=== PATIENT | male | born 1950 | race African-American/Black ===

== ENCOUNTER 2017-03-02 17:53 | Inpatient (IN) | payer BC ==
[~2017-03-02] VITALS: Ht 167.6 cm; Wt 70.3 kg
[2017-03-02 20:30] VITALS: BP 144/72
[2017-03-02] MEDS ORDERED: ACETAMINOPHEN 325 MG TABLET. PO PRN (21:00)
[2017-03-02] MEDS ORDERED: oxyCODONE/APAP 5/325 1 TAB TABLET PO PRN (21:00)
[2017-03-02] MEDS ORDERED: DEXTROSE 50% 25 GM / 50ML DISP.SYRIN. IV PRN (21:00)
[2017-03-02] MEDS ORDERED: ONDANSETRON PF 4 MG/2 ML VIAL. IV PRN (21:00)
[2017-03-02] MEDS ORDERED: SORA200T PO ×2 (21:07)
[2017-03-02] MEDS ORDERED: OLME1TAB PO (21:07)
[2017-03-02] MEDS ORDERED: GLYB5TAB3 PO (21:07)
[2017-03-02] MEDS ORDERED: ASCO500T3 PO (21:07)
[2017-03-02] MEDS ORDERED: MULT-208 PO (21:07)
[2017-03-02] MEDS: IV NORMAL SALINE 1000ML BAG 1,000 ML IV SCH (21:49)
[2017-03-02] MEDS ORDERED: RANI150C PO (22:04)
[2017-03-02] MEDS ORDERED: ONDA-35 PO (22:04)
[2017-03-02] MEDS ORDERED: HYDR-2666 PO (22:04)
[2017-03-02 23:08] VITALS: BP 146/74
[2017-03-02] MEDS ORDERED: PNEUMOCOCCAL VAX SCREEN BY RX. MC ONE (23:30)
[2017-03-03 03:07] VITALS: BP 125/75
[2017-03-03 04:10] LABS: BASO # 0.1 x10^3/uL (0.0-0.2); BASO % 1 % (0-3); EOS % 2 % (0-3); HEMATOCRIT 42.4 % (39.0-53.0); HEMOGLOBIN 13.9 g/dL (13.0-17.5); LYMPH # 3.4 x10^3/uL (1.0-4.8); LYMPH % 38 % (24-48); MEAN CORPUSCULAR HEMOGLOBIN 31 pg (25-35); MEAN CORPUSCULAR HGB CONC 33 g/dL (31-37); MEAN CORPUSCULAR VOLUME 93 fL (79-100); MONO % 13 % (0-9); NEUT % 47 % (31-73); PLATELET COUNT 195 x10^3/uL (140-400); RED BLOOD COUNT 4.56 x10^6/uL (4.30-5.70); RED CELL DISTRIBUTION WIDTH 13.9 % (11.5-14.5)
[2017-03-03 04:20] LABS: INR 1.1 (0.8-1.1); PROTHROMBIN TIME PATIENT 13.1 SEC (11.7-14.0)
[2017-03-03 04:24] LABS: ALBUMIN 2.8 g/dL (3.4-5.0); ALBUMIN/GLOBULIN RATIO 0.5 (1.0-1.7); CREATININE 0.7 mg/dL (0.7-1.3); DIRECT BILIRUBIN 0.4 mg/dL (0.0-0.2); GFR 137.4; POTASSIUM 4.2 mmol/L (3.5-5.1); TOTAL BILIRUBIN 0.8 mg/dL (0.2-1.0)
[2017-03-03] MEDS ORDERED: SORAFENIB TOSYLATE 400 MG PO SCH ×2 (06:00→16:00)
[2017-03-03 07:00] VITALS: BP 133/73
[2017-03-03] MEDS ORDERED: glyBURIDE 5 MG TABLET PO SCH (08:00)
[2017-03-03] MEDS: FAMOTIDINE 20 MG TABLET. PO SCH ×2 (08:01→21:00)
[2017-03-03] MEDS: INSULIN ASPART 300 UNITS/3 ML INSULN.PEN SQ SCH ×6 (08:14→17:55)
--- NOTE | 2017-03-03 08:26 | PDOC1 ---
History and Physical Date of Admission Date of Admission DATE: 03/03/17 TIME: 08:20 History of Present Illness History of Present Illness pt transferred from [place] for leg weakness and back pain. He hurt his back 8 days ago, lifting a 40lb paint can while working. He fell to his knee then, and had acute back pain, had been seen by PCP, lortab had helped, but pain persisted, now with leg weakness and diminished sensation to BLE, MRI done there showed mult problems, DJD and disk injury. Pt follow at [facility] for liver cancer, 2 spots on liver, 1 spot on lung, taking monoclonal antibody tx. He has f/u planned next monday w/ IR for Venous mapping of his liver, pain OK now, no leg str. and cannot walk Past Medical History Heme/Onc: Cancer Endocrine: Diabetes Family History Family History: No Significant Social History Smoke: No ALCOHOL: none Current Medications Current Medications Current Medications Oxycodone/ Acetaminophen (Percocet 5/325) 1 tab PRN Q4HRS PRN PO PAIN; Start at 21:00 Acetaminophen (Tylenol) 650 mg PRN Q6HRS PRN PO MILD PAIN / TEMP; Start at 21:00 Ondansetron HCl (Zofran) 4 mg PRN Q6HRS PRN IV NAUSEA/VOMITING; Start 03/02/17 at 21:00 Polyethylene Glycol (miraLAX PACKET) 17 gm DAILY PO ; Start 03/03/17 at 09:00 Sodium Chloride 1,000 ml @ 75 mls/hr [id number] IV Last administered on 03/02/17t 21:49; Start 03/02/17 at 21:00 Insulin Aspart (Novolog) 0-7 UNITS TIDWMEALS SQ ; Start 03/03/17 at 08:00 Dextrose (Dextrose 50%-Water Syringe) 12.5 gm PRN Q15MIN PRN IV SEE COMMENTS; Start 03/02/17 at 21:00 Ascorbic Acid (Vitamin C) 500 mg DAILY PO ; Start 03/03/17 at 09:00 Glyburide (Diabeta) 5 mg DAILYWBKFT PO ; Start 03/03/17 at 08:00 Multivitamins (Thera M Plus) 1 tab DAILY PO ; Start 03/03/17 at 09:00 Losartan Potassium (Cozaar) 100 mg DAILY PO ; Start 03/03/17 at 09:00 Non-Formulary Medication 400 mg DAILY06 PO Last administered on 03/03/17 05:35 ; Start 03/03/17 at 06:00 Non-Formulary Medication 400 mg DAILY16 PO Last administered on 03/03/17 05:37 ; Start 03/03/17 at 16:00 Hydrochlorothiazide (Microzide) 12.5 mg DAILY PO ; Start 03/03/17 at 09:00 Famotidine (Pepcid) 10 mg BID PO ; Start 03/03/17 at 09:00 Pneumococcal Polyvalent Vaccine (Do NOT chart on this placeholder) 1 each 1X ONCE MC ; Start 03/02/17 at 23:30; Stop 03/02/17 at 23:31; Status UNV Pneumococcal Polyvalent Vaccine (Pneumovax 23) 0.5 ml ONCE ONCE VAX IM ; Start 03/03/17 at 09:00; Stop 03/03/17 at 09:01 Active Scripts Active Reported Ranitidine Hcl 150 Mg Capsule 0.5 Tab PO BID Hydrocodone-Apap 5-325 (Hydrocodone Bit/Acetaminophen) 1 Each Tablet 1-2 Tab PO PRN Q6-8HRS PRN Ondansetron Hcl 4 Mg Tablet 8 Mg PO PRN Q8HRS PRN Nexavar (Sorafenib Tosylate) 200 Mg Tablet 400 Mg PO DAILY16 Nexavar (Sorafenib Tosylate) 200 Mg Tablet 400 Mg PO DAILY06 Benicar Hct 20-12.5 Mg Tablet (Olmesartan/Hydrochlorothiazide) 1 Each Tablet 1 Tab PO DAILY Multi-Day Vitamins (Multivitamin) 1 Each Tablet 1 Tab PO DAILY Glyburide 5 Mg Tablet 5 Mg PO DAILY Ascorbic Acid 500 Mg Tablet 500 Mg PO DAILY Allergies Allergies: Coded Allergies: No Known Drug Allergies (Unverified , 03/02/17) ROS General: No: Chills, Night Sweats, Malaise, Appetite, Other PSYCHOLOGICAL ROS: No: Anxiety, Behavioral Disorder, Concentration difficultie , Decreased libido, Depression, Disorientation, Hallucinations, Hostility, Irritablity, Memory difficulties, Mood Swings, Obsessive thoughts, Physical abuse, Sexual abuse, Sleep disturbances, Suicidal ideation, Other Eyes: No Blurry vision, No Decreased vision, No Double vision, No Dry eyes, No Excessive tearing, No Eye Pain, No Itchy Eyes, No Loss of vision, No Photophobia , No Scotomata, No Uses contacts, No Uses glasses, No Other HEENT: No: Heacaches, Visual Changes, Hearing change, Nasal congestion, Nasal discharge, Oral lesions, Sinus pain, Sore Throat, Epistaxis, Sneezing, Snoring, Tinnitus, Vertigo, Vocal changes, Other Respiratory: No: Cough, Hemoptysis, Orthopnea, Pleuritic Pain, Shortness of breath, SOB with excertion, Sputum Changes, Stridor, Tachypnea, Wheezing, Other Cardiovascular: No Chest Pain, No Palpitations, No Orthopnea, No Paroxysmal Noc. Dyspnea, No Edema, No Lt Headedness, No Other Gastrointestinal: No Nausea, No Vomiting, No Abdominal Pain, No Diarrhea, No Constipation, No Melena, No Hematochezia, No Other Genitourinary: No Dysuria, No Frequency, No Incontinence, No Hematuria, No Retention, No Discharge, No Urgency, No Pain, No Flank Pain, No Other, No , No , No , No , No , No , No Musculoskeletal: Yes Gait Disturbance, Yes Joint Pain, Yes Joint Stiffness, No Joint Swelling, No Muscle Pain, No Muscular Weakness, No Pain In:, No Swelling In:, No Other Neurological: Yes Gait Disturbance, Yes Impaired Coord/balance, Yes Numbness/ Tingling, No Behavorial Changes, No Bowel/Bladder ControlChng, No Confusion, No Dizziness, No Headaches, No Memory Loss, No Seizures, No Speech Problems, No Tremors, No Visual Changes, No Weakness, No Other Skin: No Dry Skin, No Eczema, No Hair Changes, No Lumps, No Mole Changes, No Mottling, No Nail Changes, No Pruritus, No Rash, No Skin Lesion Changes, No Other, No Acne Physical Exam General: Alert, Oriented X3, Cooperative, No acute distress HEENT: Atraumatic, PERRLA, EOMI Lungs: Clear to auscultation, Normal air movement Heart: no gallops, no murmurs Abdomen: Normal bowel sounds, Soft Rectal Exam: not examined Extremities: No cyanosis, No edema, Normal pulses Neuro: Normal speech, Other (leg weakness, poor senstation) Psych/Mental Status: Mental status NL, Mood NL Vitals Vitals Vital Signs Date Time Temp Pulse Resp B/P (MAP) Pulse Ox O2 Delivery O2 Flow Rate FiO2 03/03/17 07:00 98.0 67 18 133/73 (93) 97 Room Air 98.0 Labs Labs Laboratory Tests Test 03/03/17 02:53 03/03/17 02:55 03/03/17 07:21 White Blood Count 9.0 x10^3/uL (4.0-11.0) Red Blood Count 4.56 x10^6/uL (4.30-5.70) Hemoglobin 13.9 g/dL (13.0-17.5) Hematocrit 42.4 % (39.0-53.0) Mean Corpuscular Volume 93 fL (79-100) Mean Corpuscular Hemoglobin 31 pg (25-35) Mean Corpuscular Hemoglobin Concent 33 g/dL (31-37) Red Cell Distribution Width 13.9 % (11.5-14.5) Platelet Count 195 x10^3/uL (140-400) Neutrophils (%) (Auto) 47 % (31-73) Lymphocytes (%) (Auto) 38 % (24-48) Monocytes (%) (Auto) 13 % (0-9) Eosinophils (%) (Auto) 2 % (0-3) Basophils (%) (Auto) 1 % (0-3) Neutrophils # (Auto) 4.2 x10^3uL (1.8-7.7) Lymphocytes # (Auto) 3.4 x10^3/uL (1.0-4.8) Monocytes # (Auto) 1.1 x10^3/uL (0.0-1.1) Eosinophils # (Auto) 0.2 x10^3/uL (0.0-0.7) Basophils # (Auto) 0.1 x10^3/uL (0.0-0.2) Prothrombin Time 13.1 SEC (11.7-14.0) Prothromb Time International Ratio 1.1 (0.8-1.1) Sodium Level 135 mmol/L (136-145) Potassium Level 4.2 mmol/L (3.5-5.1) Chloride Level 99 mmol/L (98-107) Carbon Dioxide Level 28 mmol/L (21-32) Anion Gap 8 (6-14) Blood Urea Nitrogen 12 mg/dL (8-26) Creatinine 0.7 mg/dL (0.7-1.3) Estimated GFR (Cockcroft-Gault) 137.4 BUN/Creatinine Ratio 17 (6-20) Glucose Level 195 mg/dL (70-99) Calcium Level 9.0 mg/dL (8.5-10.1) Total Bilirubin 0.8 mg/dL (0.2-1.0) Direct Bilirubin 0.4 mg/dL (0.0-0.2) Aspartate Amino Transf (AST/SGOT) 174 U/L (15-37) Alanine Aminotransferase (ALT/SGPT) 174 U/L (16-63) Alkaline Phosphatase 128 U/L (46-116) Total Protein 8.0 g/dL (6.4-8.2) Albumin 2.8 g/dL (3.4-5.0) Albumin/Globulin Ratio 0.5 (1.0-1.7) Glucose (Fingerstick) 230 mg/dL (70-99) Laboratory Tests Test 03/03/17 02:53 03/03/17 02:55 03/03/17 07:21 White Blood Count 9.0 x10^3/uL (4.0-11.0) Red Blood Count 4.56 x10^6/uL (4.30-5.70) Hemoglobin 13.9 g/dL (13.0-17.5) Hematocrit 42.4 % (39.0-53.0) Mean Corpuscular Volume 93 fL (79-100) Mean Corpuscular Hemoglobin 31 pg (25-35) Mean Corpuscular Hemoglobin Concent 33 g/dL (31-37) Red Cell Distribution Width 13.9 % (11.5-14.5) Platelet Count 195 x10^3/uL (140-400) Neutrophils (%) (Auto) 47 % (31-73) Lymphocytes (%) (Auto) 38 % (24-48) Monocytes (%) (Auto) 13 % (0-9) Eosinophils (%) (Auto) 2 % (0-3) Basophils (%) (Auto) 1 % (0-3) Neutrophils # (Auto) 4.2 x10^3uL (1.8-7.7) Lymphocytes # (Auto) 3.4 x10^3/uL (1.0-4.8) Monocytes # (Auto) 1.1 x10^3/uL (0.0-1.1) Eosinophils # (Auto) 0.2 x10^3/uL (0.0-0.7) Basophils # (Auto) 0.1 x10^3/uL (0.0-0.2) Prothrombin Time 13.1 SEC (11.7-14.0) Prothromb Time International Ratio 1.1 (0.8-1.1) Sodium Level 135 mmol/L (136-145) Potassium Level 4.2 mmol/L (3.5-5.1) Chloride Level 99 mmol/L (98-107) Carbon Dioxide Level 28 mmol/L (21-32) Anion Gap 8 (6-14) Blood Urea Nitrogen 12 mg/dL (8-26) Creatinine 0.7 mg/dL (0.7-1.3) Estimated GFR (Cockcroft-Gault) 137.4 BUN/Creatinine Ratio 17 (6-20) Glucose Level 195 mg/dL (70-99) Calcium Level 9.0 mg/dL (8.5-10.1) Total Bilirubin 0.8 mg/dL (0.2-1.0) Direct Bilirubin 0.4 mg/dL (0.0-0.2) Aspartate Amino Transf (AST/SGOT) 174 U/L (15-37) Alanine Aminotransferase (ALT/SGPT) 174 U/L (16-63) Alkaline Phosphatase 128 U/L (46-116) Total Protein 8.0 g/dL (6.4-8.2) Albumin 2.8 g/dL (3.4-5.0) Albumin/Globulin Ratio 0.5 (1.0-1.7) Glucose (Fingerstick) 230 mg/dL (70-99) VTE Prophylaxis Ordered VTE Prophylaxis Devices: Yes VTE Pharmacological Prophylaxi: Contraindicated Assessment/Plan Assessment/Plan Acute lumbar disk injury with radiculopathy leg weakness, cannot ambulate, Liver cancer, maybe HCC, w/ mets to lung bone scan to eval other possible sites Neurosurg consulted for spinal injury Dm2 transaminitis moderate malnutrition admit JIMENEZ DE LA CRUZ MD March 03, 2017 08:26
[2017-03-03] MEDS ORDERED: DEXTROSE 50% 25 GM / 50ML DISP.SYRIN. IV PRN (08:30)
[2017-03-03] MEDS ORDERED: ASCORBIC ACID 500 MG TABLET PO SCH (09:00)
[2017-03-03] MEDS ORDERED: LOSARTAN POTASSIUM 50 MG TABLET. PO SCH (09:00)
[2017-03-03] MEDS ORDERED: PNEUMOC CONJ VACC 23-VALENT 0.5 ML VIAL. VAX IM ONE (09:00)
[2017-03-03] MEDS ORDERED: POLYETHYLENE GLYCOL 3350 17 GM PACKET. PO SCH (09:00)
[2017-03-03] MEDS ORDERED: MULTIVITAMIN with MINERAL TABLET. PO SCH (09:00)
[2017-03-03] MEDS ORDERED: hydroCHLOROthiazide 12.5 MG CAPSULE PO SCH (09:00)
[2017-03-03] MEDS: IV NORMAL SALINE 1000ML BAG 1,000 ML IV SCH (10:20)
[2017-03-03 11:00] VITALS: BP 174/75
--- NOTE | 2017-03-03 12:18 | RAD ---
Radionuclide bone scan, 03/03/2017: History: Back pain, lifting injury, previous lung cancer Whole body imaging was performed following IV injection of 25 mCi of technetium 99m MDP. No previous bone scan is available at this time for correlative purposes. The following findings are delineated: 1. There are foci of increased activity at 2 levels in the lower thoracic spine, most prominent focus is at approximately T10. This finding may be on a traumatic, arthritic or metastatic basis. Correlation with radiographic and/or MR findings is suggested in this patient with back pain. 2. There are foci of increased activity both on the right and the left at approximately the L5-S1 level. This pattern suggests facet joint arthropathy. Metastatic foci cannot be excluded. 3. Foci of mildly increased activity at the right shoulder, right wrist, the right sternoclavicular joint and the left first MTP joint region are likely arthritic in nature. 4. Increased activity at the sacroiliac joints, right greater than left is also probably arthritic in nature. 5. Normal urinary tract activity is evident.
--- NOTE | 2017-03-03 13:23 | PDOC ---
PROGRESS NOTES Subjective Subjective Patient seen and examined. Progressive Bilateral LE weakness, not explained by lumbar MRI. Thoracic MRI scan ordered. Full consult to follow. Objective Objective Vital Signs Date Time Temp Pulse Resp B/P (MAP) Pulse Ox O2 Delivery O2 Flow Rate FiO2 03/03/17 11:00 97.9 67 18 174/75 (108) 97 Room Air 97.9 Intake and Output 03/03/17 07:00 Intake Total 588 ml Output Total 800 ml Balance -212 ml Intake IV Total 588 ml Output Urine Total 800 ml Comment Review of Relevant I have reviewed the following items blas (where applicable) has been applied. Labs Laboratory Tests Test 03/03/17 02:53 03/03/17 02:55 03/03/17 07:21 03/03/17 12:12 White Blood Count 9.0 x10^3/uL (4.0-11.0) Red Blood Count 4.56 x10^6/uL (4.30-5.70) Hemoglobin 13.9 g/dL (13.0-17.5) Hematocrit 42.4 % (39.0-53.0) Mean Corpuscular Volume 93 fL (79-100) Mean Corpuscular Hemoglobin 31 pg (25-35) Mean Corpuscular Hemoglobin Concent 33 g/dL (31-37) Red Cell Distribution Width 13.9 % (11.5-14.5) Platelet Count 195 x10^3/uL (140-400) Neutrophils (%) (Auto) 47 % (31-73) Lymphocytes (%) (Auto) 38 % (24-48) Monocytes (%) (Auto) 13 % (0-9) Eosinophils (%) (Auto) 2 % (0-3) Basophils (%) (Auto) 1 % (0-3) Neutrophils # (Auto) 4.2 x10^3uL (1.8-7.7) Lymphocytes # (Auto) 3.4 x10^3/uL (1.0-4.8) Monocytes # (Auto) 1.1 x10^3/uL (0.0-1.1) Eosinophils # (Auto) 0.2 x10^3/uL (0.0-0.7) Basophils # (Auto) 0.1 x10^3/uL (0.0-0.2) Prothrombin Time 13.1 SEC (11.7-14.0) Prothromb Time International Ratio 1.1 (0.8-1.1) Sodium Level 135 mmol/L (136-145) Potassium Level 4.2 mmol/L (3.5-5.1) Chloride Level 99 mmol/L (98-107) Carbon Dioxide Level 28 mmol/L (21-32) Anion Gap 8 (6-14) Blood Urea Nitrogen 12 mg/dL (8-26) Creatinine 0.7 mg/dL (0.7-1.3) Estimated GFR (Cockcroft-Gault) 137.4 BUN/Creatinine Ratio 17 (6-20) Glucose Level 195 mg/dL (70-99) Calcium Level 9.0 mg/dL (8.5-10.1) Total Bilirubin 0.8 mg/dL (0.2-1.0) Direct Bilirubin 0.4 mg/dL (0.0-0.2) Aspartate Amino Transf (AST/SGOT) 174 U/L (15-37) Alanine Aminotransferase (ALT/SGPT) 174 U/L (16-63) Alkaline Phosphatase 128 U/L (46-116) Total Protein 8.0 g/dL (6.4-8.2) Albumin 2.8 g/dL (3.4-5.0) Albumin/Globulin Ratio 0.5 (1.0-1.7) Glucose (Fingerstick) 230 mg/dL (70-99) 288 mg/dL (70-99) Laboratory Tests Test 03/03/17 02:53 03/03/17 02:55 03/03/17 07:21 03/03/17 12:12 White Blood Count 9.0 x10^3/uL (4.0-11.0) Red Blood Count 4.56 x10^6/uL (4.30-5.70) Hemoglobin 13.9 g/dL (13.0-17.5) Hematocrit 42.4 % (39.0-53.0) Mean Corpuscular Volume 93 fL (79-100) Mean Corpuscular Hemoglobin 31 pg (25-35) Mean Corpuscular Hemoglobin Concent 33 g/dL (31-37) Red Cell Distribution Width 13.9 % (11.5-14.5) Platelet Count 195 x10^3/uL (140-400) Neutrophils (%) (Auto) 47 % (31-73) Lymphocytes (%) (Auto) 38 % (24-48) Monocytes (%) (Auto) 13 % (0-9) Eosinophils (%) (Auto) 2 % (0-3) Basophils (%) (Auto) 1 % (0-3) Neutrophils # (Auto) 4.2 x10^3uL (1.8-7.7) Lymphocytes # (Auto) 3.4 x10^3/uL (1.0-4.8) Monocytes # (Auto) 1.1 x10^3/uL (0.0-1.1) Eosinophils # (Auto) 0.2 x10^3/uL (0.0-0.7) Basophils # (Auto) 0.1 x10^3/uL (0.0-0.2) Prothrombin Time 13.1 SEC (11.7-14.0) Prothromb Time International Ratio 1.1 (0.8-1.1) Sodium Level 135 mmol/L (136-145) Potassium Level 4.2 mmol/L (3.5-5.1) Chloride Level 99 mmol/L (98-107) Carbon Dioxide Level 28 mmol/L (21-32) Anion Gap 8 (6-14) Blood Urea Nitrogen 12 mg/dL (8-26) Creatinine 0.7 mg/dL (0.7-1.3) Estimated GFR (Cockcroft-Gault) 137.4 BUN/Creatinine Ratio 17 (6-20) Glucose Level 195 mg/dL (70-99) Calcium Level 9.0 mg/dL (8.5-10.1) Total Bilirubin 0.8 mg/dL (0.2-1.0) Direct Bilirubin 0.4 mg/dL (0.0-0.2) Aspartate Amino Transf (AST/SGOT) 174 U/L (15-37) Alanine Aminotransferase (ALT/SGPT) 174 U/L (16-63) Alkaline Phosphatase 128 U/L (46-116) Total Protein 8.0 g/dL (6.4-8.2) Albumin 2.8 g/dL (3.4-5.0) Albumin/Globulin Ratio 0.5 (1.0-1.7) Glucose (Fingerstick) 230 mg/dL (70-99) 288 mg/dL (70-99) Medications Current Medications Oxycodone/ Acetaminophen (Percocet 5/325) 1 tab PRN Q4HRS PRN PO PAIN; Start at 21:00 Acetaminophen (Tylenol) 650 mg PRN Q6HRS PRN PO MILD PAIN / TEMP; Start at 21:00 Ondansetron HCl (Zofran) 4 mg PRN Q6HRS PRN IV NAUSEA/VOMITING; Start 03/02/17 at 21:00 Polyethylene Glycol (miraLAX PACKET) 17 gm DAILY PO Last administered on 08:04; Start 03/03/17 at 09:00 Sodium Chloride 1,000 ml @ 75 mls/hr [id number] IV Last administered on 03/02/17 21:49; Start 03/02/17 at 21:00 Insulin Aspart (Novolog) 0-7 UNITS TIDWMEALS SQ Last administered on 03/03/17 08:14; Start 03/03/17 at 08:00 Dextrose (Dextrose 50%-Water Syringe) 12.5 gm PRN Q15MIN PRN IV SEE COMMENTS; Start 03/02/17 at 21:00; Stop 03/03/17 at 10:26; Status DC Ascorbic Acid (Vitamin C) 500 mg DAILY PO Last administered on 03/03/17 08:04; Start 03/03/17 at 09:00 Glyburide (Diabeta) 5 mg DAILYWBKFT PO Last administered on 03/03/17 08:00; Start 03/03/17 at 08:00 Multivitamins (Thera M Plus) 1 tab DAILY PO Last administered on 03/03/17 08:00 ; Start 03/03/17 at 09:00 Losartan Potassium (Cozaar) 100 mg DAILY PO ; Start 03/03/17 at 09:00; Stop at 12:00; Status DC Non-Formulary Medication 400 mg DAILY06 PO Last administered on 03/03/17 05:35 ; Start 03/03/17 at 06:00 Non-Formulary Medication 400 mg DAILY16 PO Last administered on 03/03/17 05:37 ; Start 03/03/17 at 16:00 Hydrochlorothiazide (Microzide) 12.5 mg DAILY PO Last administered on 03/03/17 08:01; Start 03/03/17 at 09:00; Stop 03/03/17 at 10:44; Status DC Famotidine (Pepcid) 10 mg BID PO Last administered on 03/03/17 08:01; Start 03/03/17 at 09:00 Pneumococcal Polyvalent Vaccine (Do NOT chart on this placeholder) 1 each 1X ONCE MC ; Start 03/02/17 at 23:30; Stop 03/02/17 at 23:31; Status UNV Pneumococcal Polyvalent Vaccine (Pneumovax 23) 0.5 ml ONCE ONCE VAX IM Last administered on 03/03/17 10:12; Start 03/03/17 at 09:00; Stop 03/03/17 at 09:01; Status DC Insulin Aspart (Novolog) 0-7 UNITS TIDWMEALS SQ ; Start 03/03/17 at 12:00 Dextrose (Dextrose 50%-Water Syringe) 12.5 gm PRN Q15MIN PRN IV SEE COMMENTS; Start 03/03/17 at 08:30 Non-Formulary Medication 1 ea DAILY PO ; Start 03/04/17 at 09:00 Losartan Potassium (Cozaar) 100 mg 1X ONCE PO ; Start 03/03/17 at 13:30; Stop at 13:31 Active Scripts Active Reported Ranitidine Hcl 150 Mg Capsule 0.5 Tab PO BID Hydrocodone-Apap 5-325 (Hydrocodone Bit/Acetaminophen) 1 Each Tablet 1-2 Tab PO PRN Q6-8HRS PRN Ondansetron Hcl 4 Mg Tablet 8 Mg PO PRN Q8HRS PRN Nexavar (Sorafenib Tosylate) 200 Mg Tablet 400 Mg PO DAILY16 Nexavar (Sorafenib Tosylate) 200 Mg Tablet 400 Mg PO DAILY06 Benicar Hct 20-12.5 Mg Tablet (Olmesartan/Hydrochlorothiazide) 1 Each Tablet 1 Tab PO DAILY Multi-Day Vitamins (Multivitamin) 1 Each Tablet 1 Tab PO DAILY Glyburide 5 Mg Tablet 5 Mg PO DAILY Ascorbic Acid 500 Mg Tablet 500 Mg PO DAILY Vitals/I & O Vital Sign - Last 24 Hours 03/02/17 03/02/17 03/02/17 03/03/17 19:45 20:30 23:08 03:07 Temp 98.3 98.4 98.1 98.3 98.4 98.1 Pulse 80 72 58 Resp 20 18 18 B/P (MAP) 144/72 (96) 146/74 (98) 125/75 (92) Pulse Ox 100 96 97 O2 Delivery Room Air Room Air Room Air Room Air 03/03/17 03/03/17 03/03/17 03/03/17 07:00 08:03 08:10 11:00 Temp 98.0 97.9 98.0 97.9 Pulse 67 80 67 Resp 18 18 B/P (MAP) 133/73 (93) 133/73 174/75 (108) Pulse Ox 97 97 O2 Delivery Room Air Room Air Room Air Intake and Output 03/02/17 03/02/17 03/03/17 15:00 23:00 07:00 Intake Total 588 ml Output Total 800 ml Balance -212 ml YASH HO MD March 03, 2017 13:23
[2017-03-03] MEDS ORDERED: LOSARTAN POTASSIUM 50 MG TABLET. PO ONE (13:30)
[2017-03-03] MEDS ORDERED: hydrALAZINE 20 MG/ML VIAL. IVP PRN (14:00)
[2017-03-03] MEDS ORDERED: GADOBUTROL 7.5 MMOL/7.5 ML VIAL IV ONE (14:30)
--- NOTE | 2017-03-03 14:59 | RAD ---
PROCEDURE MRI thoracic spine with and without contrast. HISTORY Lung cancer, mid back pain. TECHNIQUE Sagittal T1, sagittal T2, sagittal STIR, axial T1, and axial T2 sequences are provided. 7.5 milliliters of intravenous Gadavist was administered and post-contrast axial and sagittal imaging performed. COMPARISON Bone scintigraphy from 1 day ago. FINDINGS T1 hypointense enhancing masses compatible with metastatic disease are noted at T9 and T10. There is bowing of the posterior margin of T9 and suspected extraosseous extension into the epidural space is noted. This results in moderate compression of the cord but no definite cord hyperintensity. At T10, there is extraosseous extension from the posterior elements and vertebral body on the right. There is extension into the paraspinous musculature and into the epidural space. There is severe cord compression but no definite cord hyperintensity. No additional lesion is identified. There is no pathologic fracture. There is no malalignment. There is no cord signal abnormality. There is a right paracentral herniation at T6-T7. This does not result in canal or foraminal compromise. 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 This corresponds to the areas of uptake on the bone scintigraphy. Electronically signed by: Selvin Hendricks MD (March 03, 2017 14:57:13)
--- NOTE | 2017-03-03 15:26 | RAD ---
Right upper quadrant abdominal ultrasound, 03/03/2017: History: Abnormal liver enzymes The gallbladder is within normal limits in size. There is no sonographic evidence of cholelithiasis. The gallbladder gallego are not thickened. No bile duct dilatation is seen. There is a 5.8 cm mass in the right lobe of the liver. Its margins are irregular. It is slightly more echogenic than the remainder of the liver. There is a given history of known liver cancer. No previous hepatic imaging is currently available for correlative purposes. The visualized portions of the pancreas and right kidney are unremarkable. IMPRESSION: 1. No gallbladder abnormality is detected. 2. Moderate sized hepatic mass.
[2017-03-03 15:35] VITALS: BP 175/81
[2017-03-04] MEDS ORDERED: BENICAR PO SCH (09:00)
[2017-03-04] MEDS ORDERED: HCT PO SCH (09:00)
== END 2017-03-03 23:01 | disposition short-term general hospital (02) | DRG 552 ==
LOC: 4 NORTH 20:33
PROVIDERS: ADMIT Internal Medicine; ATTEND Internal Medicine
DX: M54.16 Radiculopathy, lumbar region (principal); C22.9 Malignant neoplasm of liver, not specified as primary or secondary; E44.0 Moderate protein-calorie malnutrition; E11.9 Type 2 diabetes mellitus without complications; M19.90 Unspecified osteoarthritis, unspecified site; Z68.25 Body mass index [BMI] 25.0-25.9, adult; S39.82XA Other specified injuries of lower back, initial encounter; Y93.89 Activity, other specified; Y92.89 Other specified places as the place of occurrence of the external cause; Y99.8 Other external cause status; W19.XXXA Unspecified fall, initial encounter
CPT/HCPCS: 36415; 72157; 76705; 78306; 80053; 80076; 82947; 85027; 85610; 90732; A9503; J0360; J1815; J7030; A9585